=== PATIENT | male | born 1990 | race Caucasian/White ===

== ENCOUNTER 2018-05-05 11:46 | Emergency (ER) | END 2018-05-05 14:18 | disposition home or self-care (01) ==

== ENCOUNTER 2018-11-21 09:20 | Emergency (ER) | payer OTHER ==
[~2018-11-21] VITALS: Wt 65.0 kg
[~2018-11-21 09:20] MED LIST: ALBU18HF INHALATION; CETI10CA PO; IBUP-1542 PO; PANT40TA3 PO; PRED20TA PO
[2018-11-21 09:38] VITALS: BP 106/72; PULSE 72; RESP 16
[2018-11-21] MEDS ORDERED: KETOROLAC 60 MG INJ IM STA (10:34)
[2018-11-21] MEDS ORDERED: IBUP-1542 PO (11:27)
--- NOTE | 2018-11-21 12:04 | ERD ---
ER Documentation Chief Complaint Chief Complaint low back pain from lifting at gym yesterday. no neuro deficit HPI 28-year-old male patient with no significant past medical history presents to ED stating that he was doing lifts at the gym about 115 pounds, felt in abrupt pain in the right side of his back. Describes the pain is sharp and rates it an 8 out of 10. Denies any saddle anesthesia, urine or bowel incontinence. Denies any fever, chills, sensation, loss of range of motion, chest pain, shortness of breath, abdominal pain. ROS All systems reviewed and are negative except as per history of present illness. Medications Home Meds Active Scripts Ibuprofen* (Motrin*) 600 Mg Tab, 600 MG PO Q6, #30 TAB Prov:DARWIN MCKINNEY PA-C 11/21/18 Ibuprofen* (Motrin*) 600 Mg Tab, 600 MG PO Q6H PRN for PAIN AND OR ELEVATED TEMP, #15 TAB Prov:GUILLERMINA RAMIREZ MD 05/05/18 Pantoprazole* (Protonix*) 40 Mg Tablet.dr, 40 MG PO DAILY, #10 TAB Prov:GUILLERMINA RAMIREZ MD 05/05/18 Albuterol Sulfate* (Ventolin HFA*) 18 Gm Hfa.aer.ad, 2 PUFF INHALATION Q4H, #1 INHALER Prov:JALEESA SAWANT 10/31/15 Cetirizine Hcl* (Zyrtec*) 10 Mg Capsule, 10 MG PO DAILY, #30 TAB.CHEW Prov:JALEESA SAWANT 10/31/15 Prednisone* (Prednisone*) 20 Mg Tab, 40 MG PO DAILY for 4 Days, TAB Prov:JALEESA SAWANT 10/31/15 Allergies Allergies: Coded Allergies: No Known Allergy (Unverified , 12/13/14) PMhx/Soc History of Surgery: No Anesthesia Reaction: No Hx Neurological Disorder: No Hx Respiratory Disorders: No Hx Cardiac Disorders: No Hx Psychiatric Problems: No Hx Miscellaneous Medical Probl: No Hx Alcohol Use: No Hx Substance Use: No Hx Tobacco Use: No FmHx Family History: No diabetes, No coronary disease Physical Exam Vitals Vital Signs Date Temp Pulse Resp B/P (MAP) Pulse Ox O2 O2 Flow FiO2 Time Delivery Rate 11/21/18 97.8 72 16 106/72 98 09:38 (83) Physical Exam Const: Cxt-[id number]-raytqabox, well-nourished. In no acute distress. Head: Atraumatic, normocephalic Eyes: Normal Conjunctiva without injection ENT: Normal external ear, nose and mouth. Neck: Full range of motion. No meningismus. Resp: Clear to auscultation bilaterally. No wheezing, rhonchi, rales, or crackles. No accessory muscle use. No retractions. Cardio: Regular rate and rhythm, no murmurs Skin: No petechiae or rashes Back: No CVA tenderness. Patient does not have any midline tenderness of the thoracic or lumbar spine. Tender to palpation of the right side of patient's lumbar muscles with full range of motion with flexion, extension, rotational movements. Ext: No cyanosis, or edema. Cap refill less than 2 seconds. Distal pulses intact bilaterally. Neur: Awake and alert. Normal gait and coordination. Muscle strength 5/5. Sensation intact bilaterally. Psych: Normal Mood and Affect Results 24 hrs Current Medications Medications Dose Sig/Saroj Start Time Status Last (Trade) Ordered Route PRN Stop Time Admin Dose Reason Admin Ketorolac 60 mg ONCE STAT 11/21/18 DC 11/21/18 Tromethamine IM 10:34 10:49 (Toradol) 11/21/18 10:35 Procedures/MDM 28-year-old male patient with no significant past medical history presents ED complaining of low back pain that started while lifting at the gym. Patient is afebrile and nontoxic-appearing. She was given Toradol 60 mg here in the ED with improvement of his pain and range of motion. Patient's pain is likely secondary to muscular skeletal pain. Back safety and lifting education was given to patient here in the ED. Recommend ice packs for the first 24 hours. Patient is ambulating here in the ED without difficulty. Denies saddle anesthesia, numbness or tingling, urine or bowel incontinence, weakness. Low suspicion for cauda equina syndrome, cord compression, nephrolithiasis, aortic aneurysm, aortic dissection, epidural abscess, spinal hematoma, malignancy, py elonephritis, or other emergent conditions. Diagnosis: Back Pain Discharge medications: Ibuprofen Follow up with primary care physician in 1-2 days. Instructed patient to return to the ED sooner for any worsening symptoms. Patient's questions were answered. Patient is hemodynamically stable. Patient understood and agreed with discharge plan. Patient discharged stable. Disclaimer: Inadvertent spelling and grammatical errors are likely due to EHR/dictation software use and do not reflect on the overall quality of patient care. Also, please note that the electronic time recorded on this note does not necessarily reflect the actual time of the patient encounter. Departure Diagnosis: Primary Impression: Back pain Back pain location: back pain in unspecified location Chronicity: un specified Back pain laterality: unspecified Qualified Codes: M54.9 - Dorsalgia, unspecified Condition: Stable Patient Instructions: Back Pain (Acute Or Chronic) Referrals: [facility] YOU HAVE RECEIVED A MEDICAL SCREENING EXAM AND THE RESULTS INDICATE THAT YOU DO NOT HAVE A CONDITION THAT REQUIRES URGENT TREATMENT IN THE EMERGENCY DEPARTMENT. FURTHER EVALUATION AND TREATMENT OF YOUR CONDITION CAN WAIT UNTIL YOU ARE SEEN IN YOUR DOCTORS OFFICE WITHIN THE NEXT 1-2 DAYS. IT IS YOUR RESPONSIBILITY TO MAKE AN APPOINTMENT FOR FOLOW-UP CARE. IF YOU HAVE A PRIMARY DOCTOR --you should call your primary doctor and schedule an appointment IF YOU DO NOT HAVE A PRIMARY DOCTOR YOU CAN CALL OUR PHYSICIAN REFERRAL HOTLINE AT IF YOU CAN NOT AFFORD TO SEE A PHYSICIAN YOU CAN CHOSE FROM THE FOLLOWING [facility] [address] [facility]. [facility] [address] [facility]. [facility] [address] [facility] [facility] [address] [facility] [facility] [address] [facility]. [facility]. [address] [facility]. [facility] YOU HAVE RECEIVED A MEDICAL SCREENING EXAM AND THE RESULTS INDICATE THAT YOU DO NOT HAVE A CONDITION THAT REQUIRES URGENT TREATMENT IN THE EMERGENCY DEPARTMENT. FURTHER EVALUATION AND TREATMENT OF YOUR CONDITION CAN WAIT UNTIL YOU ARE SEEN IN YOUR DOCTORS OFFICE WITHIN THE NEXT 1-2 DAYS. IT IS YOUR RESPONSIBILITY TO MAKE AN APPOINTMENT FOR FOLOW-UP CARE. IF YOU HAVE A PRIMARY DOCTOR --you should call your primary doctor and schedule and appointment IF YOU DO NOT HAVE A PRIMARY DOCTOR YOU CAN CALL OUR PHYSICIAN REFERRAL HOTLINE AT . IF YOU CAN NOT AFFORD TO SEE A PHYSICIAN YOU CAN CHOSE FROM THE FOLLOWING [facility] INSTITUTIONS: [facility] [address] [place] [address] [facility] [address] [place] [address] [facility] [address] [place] [address] [facility] URGENT CARE/SPECIALTIES Additional Instructions: Call your primary care doctor TOMORROW for an appointment during the next 2-3 days.See the doctor sooner or return here if your condition worsens before your appointment time. DARWIN MCKINNEY PA-C Nov 21, 2018 12:04
== END 2018-11-21 12:27 | disposition home or self-care (01) ==
LOC: FTE 09:20
DX: M54.5 Low back pain (principal)
CPT/HCPCS: 96372; J1885; Z7502